=== PATIENT | female | born 1960 | race Caucasian/White ===

== ENCOUNTER 2017-01-01 11:27 | Emergency (ER) | payer BC ==
[2017-01-01 11:35] VITALS: RESP 16
--- NOTE | 2017-01-01 12:34 | US ---
EXAMINATION TYPE: US venous doppler duplex LE RT DATE OF EXAM: 01/01/2017 12:22 PM COMPARISON: NONE CLINICAL HISTORY: Pain. Soreness right leg. Surgery to right foot 10 days ago, cast removed yesterday SIDE PERFORMED: right TECHNIQUE: The lower extremity deep venous system is examined utilizing real time linear array sonog livier with graded compression, doppler sonography and color-flow sonography. VESSELS IMAGED: External Iliac Vein (EIV) Common Femoral Vein Deep Femoral Vein Greater Saphenous Vein * Femoral Vein Popliteal Vein Small Saphenous Vein * Proximal Calf Veins (* superficial vessels) Right Leg: No evidence of DVT as visualized IMPRESSION: Negative exam. No evidence of deep venous thrombosis.
--- NOTE | 2017-01-01 12:38 | ED ---
General Adult HPI - General Chief complaint: Extremity Injury, Lower Stated complaint: POSS BLOODCLOT IN RT LEG, POST OP Time Seen by Provider: 01/01/17 11:47 Source: patient, RN notes reviewed, old records reviewed Mode of arrival: wheelchair Limitations: no limitations - History of Present Illness Initial comments: This is a 56-year-old female here for evaluation of right leg pain, right leg edema. She did recently have cast removed on right leg for his history of plantar fasciitis surgery. Patient does have family history of blood clots no blood clot herself shortsighted relativity. Patient denies chest pain or shortness of breath, is able to ambulate without difficulty and denies trauma. No fevers. - Related Data Allergies Allergy/AdvReac Type Severity Reaction Status Date / Time No Known Allergies Allergy Verified 01/01/17 11:35 Review of Systems ROS Statement: Those systems with pertinent positive or pertinent negative responses have been documented in the HPI. ROS Other: All systems not noted in ROS Statement are negative. Past Medical History Past Medical History: Hypertension, Thyroid Disorder History of Any Multi-Drug Resistant Organisms: None Reported Additional Past Surgical History / Comment(s): right foot surgery Past Psychological History: No Psychological Hx Reported Smoking Status: Never smoker Past Alcohol Use History: None Reported Past Drug Use History: None Reported General Exam - General Exam Comments Initial Comments: Patient has mild varicosities right leg, negative Smith, negative Homans sign Limitations: no limitations General appearance: alert, in no apparent distress Head exam: Present: atraumatic, normocephalic, normal inspection Eye exam: Present: normal appearance, PERRL, EOMI. Absent: scleral icterus, conjunctival injection, periorbital swelling ENT exam: Present: normal exam, mucous membranes moist Neck exam: Present: normal inspection. Absent: tenderness, meningismus, lymphadenopathy Respiratory exam: Present: normal lung sounds bilaterally. Absent: respiratory distress, wheezes, rales, rhonchi, stridor Cardiovascular Exam: Present: regular rate, normal rhythm, normal heart sounds. Absent: systolic murmur, diastolic murmur, rubs, gallop, clicks GI/Abdominal exam: Present: soft, normal bowel sounds. Absent: distended, tenderness, guarding, rebound, rigid Extremities exam: Present: normal inspection, full ROM, normal capillary refill. Absent: tenderness, pedal edema, joint swelling, calf tenderness Back exam: Present: normal inspection Neurological exam: Present: alert, oriented X3, CN II-XII intact Psychiatric exam: Present: normal affect, normal mood Skin exam: Present: warm, dry, intact, normal color. Absent: rash Course Vital Signs 01/01/17 01/01/17 11:32 12:44 Temperature 97.4 F L 97.8 F Pulse Rate 79 68 Respiratory 16 16 Rate Blood Pressure 134/79 122/61 O2 Sat by Pulse 98 98 Oximetry - Reevaluation(s) Reevaluation #1: 01/01/17 13:01 Patient required any significant pain control Reevaluation #2: 01/01/17 13:01 Social patient regarding she is also having of vertigo. Patient concern for possible tick bite. Patient denies any significant complaints of dizziness or vertigo at this time. She states it is positional and comes and goes. Spoke at length with patient regarding vertigo, patient denies headache. No fevers. No ear pain or change in hearing Medical Decision Making - Medical Decision Making 56 female here with right lower extremity edema postop, patient does have leg edema and pain secondary to removal of cast, also with symptoms of vertigo - Radiology Data Radiology results: report reviewed (Ultrasound right lower extremity is negative for DVT), image reviewed Disposition Clinical Impression: Postoperative edema, Vertigo Disposition: HOME SELF-CARE Condition: Good Instructions: Vertigo (ED), Leg Edema (ED) Referrals: Vesna Anthony DO [Primary Care Provider] - 1-2 days
[2017-01-01 12:45] VITALS: BP 122/61; PULSE 68; TEMP 97.8
== END 2017-01-01 12:45 | disposition home or self-care (01) ==
LOC: EC 11:27
DX: R60.0 Localized edema (principal); R42 Dizziness and giddiness; M79.604 Pain in right leg; Z98.890 Other specified postprocedural states
CPT/HCPCS: 99284

== ENCOUNTER 2021-08-13 23:39 | Emergency (ER) | payer OTHER ==
[2021-08-13 23:56] VITALS: TEMP 97.3
[2021-08-14] MEDS ORDERED: SODIUM CHLORIDE 0.9% 1,000 ML IV SCH (00:30)
[2021-08-14] MEDS ORDERED: ACETAMINOPHEN TAB 500 MG TAB PO STA (00:31)
[2021-08-14] MEDS ORDERED: KETOROLAC 15 MG/ML 1 ML VIAL IVP STA (00:31)
[2021-08-14] MEDS ORDERED: DEXAMETHASONE SOD PHOSPHATE 10 MG/ML 1 ML VIAL IVP STA (00:31)
[2021-08-14] MEDS ORDERED: SODIUM CHLORIDE 0.9% 1,000 ML IV STA (00:31)
--- NOTE | 2021-08-14 00:34 | ED ---
URI HPI - General Chief Complaint: Upper Respiratory Infection Stated Complaint: COVID+, wants antibodies Time Seen by Provider: 08/13/21 23:50 Source: patient, RN notes reviewed, old records reviewed Limitations: no limitations - History of Present Illness Initial Comments: This is a 61-year-old female to the ER for evaluation. Patient presented today for evaluation with recent diagnosis of coronavirus increasing symptoms are worsening shortness of breath and chest pain weakness and persistent fevers. Patient is on day 3-4 a positive diagnosis and symptoms. Also is interested in the antibody treatment MD Complaint: fever, cough, nasal congestion -: days(s) (3) Severity: moderate Severity scale (1-10): 5 Quality: burning, sharp, dull Consistency: constant Improves With: nothing Worsens With: nothing Context: new medications Associated Symptoms: chills, myalgias Treatments Prior to Arrival: none - Related Data Allergies Allergy/AdvReac Type Severity Reaction Status Date / Time No Known Allergies Allergy Verified 08/13/21 23:52 Review of Systems ROS Statement: Those systems with pertinent positive or pertinent negative responses have been documented in the HPI. ROS Other: All systems not noted in ROS Statement are negative. Past Medical History Past Medical History: Hyperlipidemia, Hypertension, Thyroid Disorder Additional Past Medical History / Comment(s): poor circulation History of Any Multi-Drug Resistant Organisms: None Reported Past Surgical History: No Surgical Hx Reported Additional Past Surgical History / Comment(s): right foot surgery Past Psychological History: No Psychological Hx Reported Smoking Status: Never smoker Past Alcohol Use History: None Reported Past Drug Use History: None Reported General Exam Limitations: no limitations General appearance: alert, in no apparent distress Head exam: Present: atraumatic, normocephalic, normal inspection Eye exam: Present: normal appearance, PERRL, EOMI. Absent: scleral icterus, conjunctival injection, periorbital swelling ENT exam: Present: normal exam, mucous membranes dry, mucous membranes moist Neck exam: Present: normal inspection. Absent: tenderness, meningismus, lymphadenopathy Respiratory exam: Present: normal lung sounds bilaterally. Absent: respiratory distress, wheezes, rales, rhonchi, stridor Cardiovascular Exam: Present: regular rate, normal rhythm, normal heart sounds. Absent: systolic murmur, diastolic murmur, rubs, gallop, clicks GI/Abdominal exam: Present: soft, normal bowel sounds. Absent: distended, tenderness, guarding, rebound, rigid Extremities exam: Present: normal inspection, full ROM, normal capillary refill. Absent: tenderness, pedal edema, joint swelling, calf tenderness Back exam: Present: normal inspection Neurological exam: Present: alert, oriented X3, CN II-XII intact Psychiatric exam: Present: normal affect, normal mood Skin exam: Present: warm, dry, intact, normal color. Absent: rash Course Vital Signs 08/13/21 23:52 Temperature 97.3 F L Pulse Rate 76 Respiratory 20 Rate Blood Pressure 160/97 O2 Sat by Pulse 98 Oximetry - Reevaluation(s) Reevaluation #1: 08/14/21 01:42 Record is reviewed Reevaluation #2: 08/14/21 01:42 Patient symptoms are improved here in the department Reevaluation #3: 08/14/21 02:42 Patient is informed of results and questions are answered Medical Decision Making - Medical Decision Making 61 female to the emergency department for evaluation positive for coronavirus he did receive antibody treatment without reaction. CT negative for PE and patient can be discharged home - Radiology Data Radiology results: report reviewed (CT chest is negative for PE), image reviewed Disposition Clinical Impression: Coronavirus infection Disposition: HOME SELF-CARE Condition: Good Instructions (If sedation given, give patient instructions): Coronavirus Disease 2019 (COVID-19) Is patient prescribed a controlled substance at d/c from ED?: No Referrals: None,Stated [Primary Care Provider] - 1-2 days
[2021-08-14] MEDS ORDERED: SOTROVIMAB (EUA) 500 MG in SODIUM CHLORIDE 0.9% 100 ML IVPB ONE (01:15)
[2021-08-14] MEDS ORDERED: SODIUM CHLORIDE 0.9% 50 ML IVPB ONE (01:15)
[2021-08-14 01:54] LABS: HCT 41.9 % (34.0-46.0); HGB 13.5 gm/dL (11.4-16.0); MCH 30.7 pg (25.0-35.0); MCHC 32.3 g/dL (31.0-37.0); RBC 4.41 m/uL (3.80-5.40); RDW 13.1 % (11.5-15.5); WBC 3.4 k/uL (3.8-10.6)
[2021-08-14 01:55] LABS: Basophils % (A) 1 %; Eosinophils % (A) 1 %; Lymphocytes % (A) 57 %; Mean Platelet Volume 8.3; Monocytes # (A) 0.3 k/uL (0-1.0); Monocytes % (A) 8 %; Neutrophils % (A) 30 %; Platelet Count 277 k/uL (150-450)
[2021-08-14 02:02] LABS: INR 0.9 (<1.2); Partial Thromboplastin Time 22.8 sec (22.0-30.0); Prothrombin Time 9.9 sec (9.0-12.0)
[2021-08-14 02:19] LABS: ALT 50 U/L (4-34); AST 40 U/L (14-36); African American GFR (CKD) >90 (>60 ml/min/1.73 sqM); Albumin 4.2 g/dL (3.5-5.0); Alkaline Phosphatase 93 U/L (38-126); Anion Gap 5 mmol/L; Blood Urea Nitrogen 15 mg/dL (7-17); Calcium 9.3 mg/dL (8.4-10.2); Carbon Dioxide 27 mmol/L (22-30); Chloride 107 mmol/L (98-107); Glucose 119 mg/dL (74-99); LDH 414 U/L (313-618); Magnesium 2.1 mg/dL (1.6-2.3); Non-African American GFR(CKD) >90 (>60 ml/min/1.73 sqM); Potassium 3.9 mmol/L (3.5-5.1); Sodium 139 mmol/L (137-145); Total Bilirubin 0.4 mg/dL (0.2-1.3); Total Protein 7.4 g/dL (6.3-8.2)
[2021-08-14 02:25] LABS: C Reactive Protein <0.5 mg/dL (<1.0)
--- NOTE | 2021-08-14 02:50 | CT ---
EXAMINATION TYPE: CT angio chest DATE OF EXAM: 08/14/2021 COMPARISON: None HISTORY: R/O PE CT DLP: 301.4 mGycm Automated exposure control for dose reduction was used. CONTRAST: Performed with IV Contrast, patient injected with 65 mL of Isovue 370. There are Three-D postprocessed images. The lungs are clear of infiltrate. There is no pleural effusion or pneumothorax. Trachea is midline. There is no mediastinal adenopathy. There are no hilar masses. Thoracic aorta is intact. There is no evidence of aneurysm or dissection. There is normal contrast opacification of the pulmonary arteries. There are no filling defects. The thoracic spine is intact. There is no compression fracture. Sternum is intact. The ribs appear in tact. IMPRESSION: Negative exam. No evidence of pulmonary embolism.
[2021-08-14 05:17] VITALS: BP 145/88; PULSE 80; RESP 18
== END 2021-08-14 04:51 | disposition home or self-care (01) ==
LOC: EC 23:39
DX: U07.1 COVID-19 (principal); I10 Essential (primary) hypertension
CPT/HCPCS: 36415; 93005; 83880; 80053; 83605; 83615; 83735; 85025; 85610; 85730; 86140; 71275; 99285; 96374; 96375; 96361 ×2; J1100; J1885; Q9967; Q0247